=== PATIENT | male | born 1970 | race Caucasian/White ===

== ENCOUNTER 2021-05-20 21:04 | Emergency (ER) | payer MEDICAID ==
[~2021-05-20] VITALS: Ht 167.6 cm; Wt 68.0 kg
[2021-05-20 22:10] VITALS: BP 139/92
[2021-05-20] MEDS ORDERED: LEVETIRACETAM 1,500 MG in SODIUM CHLORIDE 0.9% 100 ML IV SCH (22:15)
[2021-05-20 22:54] LABS: BASOPHILS % 0.2 % (0.0-2.0); EOSINOPHILS % 1.9 % (0.0-5.0); HEMATOCRIT. 41.8 % (42.0-52.0); HEMOGLOBIN. 14.1 g/dL (14.0-18.0); LYMPHOCYTES % 10.1 % (20.0-50.0); MEAN CORPUSCULAR HEMOGLOBIN 32.9 pg (28.0-32.0); MEAN CORPUSCULAR VOLUME 97.5 fL (80.0-94.0); MEAN PLATELET VOLUME 10.9 fl (7.4-10.4); MONOCYTES % 5.3 % (2.0-8.0); NEUTROPHILS % 82.5 % (40.0-76.0); PLATELET 116 x1000/uL (130-400); RED BLOOD CELL COUNT 4.28 mill/uL (4.7-6.1); RED CELL DISTRIBUTION WIDTH 12.9 % (11.6-14.6)
[2021-05-20 22:55] LABS: CHLORIDE 110 mEq/L (98-107)
[2021-05-20 23:01] LABS: ETHANOL BLOOD < 10 mg/dL
== END 2021-05-20 22:46 | disposition left against medical advice (07) ==
LOC: ER 21:04
DX: G40.909 Epilepsy, unspecified, not intractable, without status epilepticus (principal); I69.354 Hemiplegia and hemiparesis following cerebral infarction affecting left non-dominant side
CPT/HCPCS: 36415; 71045; 80053; 80320; 83605; 84484; 85025; 99284; J1953; J7050; G0480